=== PATIENT | male | born 1955 | race Caucasian/White ===

== ENCOUNTER 2016-07-01 21:19 | Inpatient (IN) | payer OTHER ==
--- NOTE | ~2016-07-01 | MR17 ---
[facility] A Service of [facility] & [facility] RADIOLOGY TEXT RESULTS PATIENT: JANET MORRISON LOCATION: [facility] 219-01 : [birth year] UNIT #: [id number] AGE: [address]: Tere Guadalupe MD SEX: M ORDER DR: [id number] [facility] [address] [place], [place] [address] [id number] I MR#: [id number] Acc #: [id number] NAME: JANET MORRISON : 1955 SEX: M STUDY DATE/TIME: 07/02/2016 17:12 UNIT: [facility] ROOM: [facility] STUDY DESCRIPTION: MR Brain WWo Contrast Attending Physician: Tere Guadalupe M.D. Referring Physician: Freddy Cuevas M.D. Ordering Physician: Scott Vitale M.D. Primary Care Physician: Freddy Cuevas M.D. MRI CENTER REPORT This report is preliminary unless electronic signature is present. EXAM MRI of the brain with and without contrast dated 07/02/2016 COMPARISON MRI of the brain with and without contrast dated 10/11/2013. HISTORY Pulled from car while having seizures today. FINDINGS Multisequence, multiplanar imaging of the brain was obtained with and without contrast. GFR measured greater than 60. 15 mL of MultiHance was administered intravenously. Previously noted oval 8 x 7.5 mm nonenhancing lesion abutting the left temporal horn and in the left hippocampal formation is again seen, stable. Nonspecific scattered hyperintense T2 signal lesions are noted in the subcortical and periventricular white matter. Stable to slightly worse when compared to the previous study. Thick slices through the sella with the pituitary gland, pineal region and upper cervical spine are unremarkable. S-shaped nasal septal deviation is seen. Mild paranasal sinus mucosal thickening is seen. Orbits with the ocular structures and mastoids do not demonstrate any significant abnormality. Subtle increased T2 FLAIR signal seen in bilateral hippocampal formations particularly in the left is again noted without any significant interval worsening in the last 3 years. Patient is known to have had prior viral encephalitis. It could be residual from the treated infection. IMPRESSION 1. Stable nonenhancing oval 9 mm left hippocampal cystic appearing lesion is again seen. 2. Nonspecific, nonenhancing, scattered, hyperintense T2 signal lesions are redemonstrated in the white matter, stable to slightly worse. [facility]. [facility] A Service of [facility] & [facility] RADIOLOGY TEXT RESULTS PATIENT: JANET MORRISON LOCATION: [facility] 219-01 : [birth year] UNIT #: [id number] AGE: [address]: Tere Guadalupe MD SEX: M ORDER DR: Differential consideration include chronic microvascular ischemic change, migraine and other white matter prior insults. 3. No interval significant new abnormality. 4. Subtle increased T2 FLAIR signal seen in bilateral hippocampal formations particularly in the left is again noted without any significant interval worsening in the last 3 years. Patient is known to have had prior viral encephalitis. It could be residual from the treated infection. Dictated by... Homero Simms M.D. THIS IS AN ELECTRONICALLY VERIFIED REPORT Homero Simms M.D. at 07/04/2016 1:08 PM CPR/delisa TD: 07/03/2016 08:06 JOB #: [id number] MRI CENTER REPORT COPY
--- NOTE | ~2016-07-01 | CO ---
Unit #: [id number] #: [id number] Patient: JANET MORRISON [id number] [address] [address] [id number] I MR#: [id number] NAME: JANET MORRISON [facility]OM: [facility] Age: 60 Sex: M Admission Date: 07/01/2016 : 1955 Attending Physician: Tere Guadalupe M.D. Primary Care Physician: Freddy Cuevas M.D. Requesting Physician: Freddy Cuevas M.D. Consultation Date: 07/01/2016 CONSULTATION REPORT REASON FOR CONSULT ICU management. HISTORY OF PRESENT ILLNESS This is a 58-year-old, male with past medical history significant for seizure, alcohol abuse, hypertension, and herpes encephalitis who presented to the emergency room after he was found in his car by a bystander seizing. Per family, patient was fine up to two hours ago when they talked to him last. He was visiting his fiancee who is sick here in the hospital. Per family, patient is compliant with his medicine and he was doing fine. Currently, patient is responsive only on the right side. His left pupil and left side are minimally reactive. REVIEW OF SYSTEMS Unable to obtain. PAST MEDICAL HISTORY 1. Seizure disorder. 2. Hypertension. 3. History of herpes encephalitis. 4. Chronic headache. 5. Depression. 6. History of alcohol abuse, but quit two years ago. PAST SURGICAL HISTORY None. HOME MEDICATIONS 1. Keppra. 2. Lisinopril. ALLERGIES Penicillin. SOCIAL HISTORY Patient has no history of tobacco abuse. He uses marijuana and he used to be a heavy drinker, but he quit two years ago. FAMILY HISTORY Unremarkable. PHYSICAL EXAMINATION Unit #: [id number] #: [id number] Patient: JANET MORRISON GENERAL: The patient is on the vent. HEENT: Head atraumatic and normocephalic. His left pupil is distorted and unreactive. NECK: Supple. No JVD. No lymphadenopathy. CHEST: Bilateral fine rhonchi. HEART: S1 and S2. No murmurs, gallops, or rubs. ABDOMEN: Soft and nontender. Bowel sounds are positive. No hepatosplenomegaly. EXTREMITIES: No edema or cyanosis. SKIN: No rashes. HABILITATION TRAINING SPECIALIST: Patient is withdrawing to pain stimuli on the right side. Left side still minimally responsive. He has gag and cough reflexes. DIAGNOSTIC STUDIES Labs and other tests are pending at this point. ASSESSMENT 1. Acute hypoxic respiratory failure. 2. Status post epilepticus. 3. History of hypertension. 4. History of alcohol abuse, but he quit two years ago. PLAN 1. Patient is critical. Will continue vent support pending further testing and imaging. 2. IV Keppra, IV Vimpat, and Ativan. 3. Will cover for aspiration pneumonia pending chest x-ray and other cultures. 4. Zosyn for aspiration pneumonia. 5. IV hydration. 6. DVT and GI prophylaxes. Please note that patient's labs are pending at the time of my dictation. This plan may need to be adjusted per his labs. Critical care time spent on this patient was 38 minutes. Dictated by... Mago Lr TD: 07/02/2016 06:43 JOB #: [id number] CONSULTATION REPORT X KENIA OGLESBY MD CONSULTATION REPORT
--- NOTE | ~2016-07-01 | CT71 ---
[facility] A Service of [facility] RADIOLOGY TEXT RESULTS PATIENT: JANET MORRISON LOCATION: [place] [address] : [birth year] UNIT #: [id number] AGE: [address]: Tere Guadalupe MD SEX: M ORDER DR: [id number] [facility] [address] [facility]. [place], [place] [address] [id number] I MR#: [id number] Acc #: [id number] NAME: JANET MORRISON : 1955 SEX: M STUDY DATE/TIME: 07/01/2016 23:04 UNIT: [facility] ROOM: [facility] STUDY DESCRIPTION: CT Head Wo Contrast Attending Physician: Tere Guadalupe M.D. Referring Physician: Freddy Cuevas M.D. Ordering Physician: Richard Atwood D.O. Primary Care Physician: Freddy Cuevas M.D. MEDICAL IMAGING REPORT This report is preliminary unless electronic signature is present EXAM Head CT, 07/01 at 23:04 hours INDICATION Seizure today. History of seizures. Patient also has a history of hypertension. COMPARISON 10/16/[address] exam was performed with one or more of the following radiation dose reduction techniques: automatic exposure control, adjustment of mA and/or kV according to patient size, and iterative reconstruction. FINDINGS Axial noncontrast images were obtained from the skull base to the vertex. Ventricular size and configuration are normal. There is no evidence of acute infarct or hemorrhage. There are no extra-axial fluid collections. No mass lesion or mass effect is seen. There are no skull fractures. IMPRESSION Normal noncontrast head CT. Dictated by... Buster Qureshi Jr., M.D. THIS IS AN ELECTRONICALLY VERIFIED REPORT Buster Qureshi Jr., M.D. at 07/02/2016 9:58 PM Ward TD: 07/02/2016 10:18 JOB #: [id number] [facility] A Service of [facility] RADIOLOGY TEXT RESULTS PATIENT: JANET MORRISON LOCATION: [address] : [birth year] UNIT #: [id number] AGE: [address]: Tere Guadalupe MD SEX: M ORDER DR: MEDICAL IMAGING REPORT COPY
--- NOTE | ~2016-07-01 | OR ---
Unit #: [id number] #: [id number] Patient: JANET MORRISON [id number] [address] [address] [id number] I MR#: [id number] NAME: JANET MORRISON ROOM: [facility] Date of Procedure: 07/01/2016 Admission Date: 07/01/2016 Surgeon: Kenia Chua M.D. : 1955 Attending Physician: Tere Guadalupe M.D. Primary Care Physician: Freddy Cuevas M.D. PROCEDURE OPERATIVE NOTE PROCEDURE Right intrajugular central line catheter placement with ultrasound guidance. INDICATION FOR PROCEDURE Status epilepticus. COMPLICATION None. PREMEDICATION None. DESCRIPTION OF PROCEDURE Informed consent was obtained from the patient. Dr. Beckford explaining the benefit and risk of this procedure. The patient was present, prepared with chlorhexidine and then a body drape was applied. Then with ultrasound guidance, a needle was inserted in the right IJ until blood flow was obtained and then a guidewire was inserted and the needle was removed. Then, a dilator was used to create a track for the catheter and then the catheter was inserted over the guidewire and guidewire was removed. The catheter was flushed appropriately and sutured in place. Biopatch and clean dressing were applied with no complication. Dictated by... Kenia Chua M.D. EA/yajaira TD: 07/02/2016 07:37 JOB #: [id number] PROCEDURE OPERATIVE NOTE X KENIA OGLESBY MD X PROCEDURE OPERATIVE NOTE
--- NOTE | ~2016-07-01 | CR72 ---
[facility] A Service of [facility] RADIOLOGY TEXT RESULTS PATIENT: JANET MORRISON LOCATION: [address] : [birth year] UNIT #: [id number] AGE: [address]: Tere Guadalupe MD SEX: M ORDER DR: [id number] [facility] [address] [facility] [place], [place] [address] [id number] I MR#: [id number] Acc #: [id number] NAME: JANET MORRISON : 1955 SEX: M STUDY DATE/TIME: 07/01/2016 22:05 UNIT: [facility] ROOM: [facility] STUDY DESCRIPTION: CR Chest Single View Portable Attending Physician: Tere Guadalupe M.D. Referring Physician: Freddy Cuevas M.D. Ordering Physician: Richard Atwood D.O. Primary Care Physician: Freddy Cuevas M.D. MEDICAL IMAGING REPORT This report is preliminary unless electronic signature is present EXAM AP portable chest 07/01/2016 at 22:05 HISTORY Seizure. Central line placement today. COMPARISON AP portable chest 10/17/2013. FINDINGS ET tube tip in satisfactory position in the mid to upper thoracic trachea, the tip located about 6.8 cm above the isreal. Right neck approach central line tip extends to the mid SVC level. No visible pneumothorax. Presumed skin fold artifact over the right upper lateral chest. No acute airspace disease. Heart size within normal limits. IMPRESSION 1. ET tube tip 6.8 cm above the isreal. 2. Right neck approach central line tip extends in the mid SVC. 3. No acute chest findings. Presumed skin fold artifact over the right upper lateral chest mimics the appearance of pneumothorax. No definite pneumothorax is seen. Dictated by... Dolores Alberto M.D. THIS IS AN ELECTRONICALLY VERIFIED REPORT Dolores Alberto M.D. at 07/02/2016 2:09 PM LORENZA/delisa TD: 07/02/2016 10:07 JOB #: [id number] [facility]. [facility] A Service of [facility] & [facility] RADIOLOGY TEXT RESULTS PATIENT: JANET MORRISON [address]ATION: [address] [id number] : [birth year] UNIT #: [id number] AGE: [address]: Tere Guadalupe MD SEX: M ORDER DR: MEDICAL IMAGING REPORT COPY
--- NOTE | ~2016-07-01 | CO ---
Unit #: [id number] #: [id number] Patient: JANET MORRISON [id number] [facility] [address] [facility]. [place], [place] [address] [id number] I MR#: [id number] NAME: JANET MORRISON ROOM: [facility] Age: 60 Sex: M Admission Date: 07/01/2016 : 1955 Attending Physician: Tere Guadalupe M.D. Primary Care Physician: Freddy Cuevas M.D. Consultation Date: 07/02/2016 CONSULTATION REPORT PRIMARY CARE PHYSICIAN Freddy Cuevas M.D. REASON FOR CONSULT Status epilepticus. PATIENT IDENTIFICATION This is a 60-year-old right-handed male, evaluated in ICU room 16 at [facility]. SOURCE OF INFORMATION Obtained from the patient's medical record. HISTORY OF PRESENT ILLNESS This is a 60-year-old right-handed male with past medical history of seizure disorder, herpes encephalitis, tobacco use, remote alcohol abuse, depression, chronic back pain, hypertension, also chronic headache, who presented to [facility] with recurrent seizures. He was admitted and treated for status epilepticus and was intubated and actually extubated this morning. He is confused, but following commands. He is agitated. He is restless. He is actually requiring four-point restraints to maintain his medical safety and is requiring a sitter. He is a poor historian and is altered. He had a head CT done in the ER without contrast on 07/01/2016 that was normal. He had a chest x-ray also on 07/02/2016 that is unremarkable. Chest x-ray from 07/01/2016 shows no acute chest findings. Presumed skin fold artifact over the right upper lateral chest mimics the appearance of pneumothorax. No definite pneumothorax is seen. PAST MEDICAL HISTORY 1. He was seen by Neurology in 09/2013 for syncope and was treated for seizure disorder. 2. Herpes encephalitis in the remote past. 3. Hypertension. 4. Chronic headaches. 5. Alcohol abuse. Apparently, quit drinking several years ago. 6. Marijuana use. 7. UTI. 8. Depression. ALLERGIES Penicillin. FAMILY HISTORY Unit #: [id number] #: [id number] Patient: JANET MORRISON Unobtainable from the patient at this time. According to records, family history is positive for hypertension and CAD. SOCIAL HISTORY The patient apparently lives with a girlfriend or an ex-. He has no current history of tobacco use. He does use marijuana. Apparently, he used to be heavy drinker, but it is reported that he quit in 2011. I am unable to verify this. The patient currently is a poor historian. These are obtained from the medical records. REVIEW OF SYSTEMS Difficult to obtain from the patient given his mental status. PHYSICAL EXAMINATION VITAL SIGNS: Temperature 97.8, he has been afebrile, pulse 85, respirations 23, blood pressure 141/67, blood pressure in the ER on arrival was 181/77, oxygen saturation 99%. Height 5 feet 10 inches, weight 134 pounds. BMI 19. NEUROLOGIC: The patient is resting in bed now. He has received medication. He is in four-point restraints. However upon arousal, the patient is agitated and restless. Attempts to sit up in bed. He does follow simple commands. He is a poor historian. He cannot tell me he is in the hospital. He tells me it is 04/2016. Cranial nerve exam, he responds to threats in the primary and peripheral visual burrell. Eyes are conjugate without ptosis or nystagmus. Extraocular movements are intact. Unable to fully assess sensation of face and scalp. Strength of muscles of facial expression appeared to be equal. Hearing is intact to voice. Tongue is midline. Unable to visualize uvula and palate. Head turning is unremarkable spontaneously. Unable to fully assess shoulder shrug. Neck is supple. No meningismus appreciated. Motor exam, his adult probation officer strength is equal. He moves all extremities equally in bed spontaneously. Sensory exam limited evaluation. He does respond with withdrawal to noxious stimuli. Gait deferred. Romberg deferred. Reflexes, 1/4. Toes are mute. Coordination, unable to fully assess at this time. No tremors or myoclonus seen. DIAGNOSTIC STUDIES IMAGING STUDIES: Please see above. LABORATORY RESULTS: White blood cell count 23.3, hemoglobin 13.4, hematocrit 40, platelet count 292. CPK 185. Lactic acid 1. Urine tox screen positive for marijuana. Initial white blood cell count 13.3. PT 11, INR 1.0, PTT 23.3. Acetaminophen level less than 10. Salicylate level less than 4. Alcohol level less than 5. CMP unremarkable. Procalcitonin less than 0.05. IMPRESSION 1. Status epilepticus, resolved, stable. 2. Encephalopathy questionable toxic and metabolic versus primary neurologic etiology. No meningismus seen. 3. Leukocytosis, questionable reactive. 4. Seizure disorder. 5. Hypertension. 6. History of herpes encephalitis. PLAN The patient is stable, not currently seizing, and we will follow along closely. May consider LP. Given his altered mental status and seizures Unit #: [id number] #: [id number] Patient: JANET MORRISON though he has no meningismus or fever, but given his history and presentation, we have status epilepticus that is now stable, but we do not have an established cause for breakthrough. Family reports he is very compliant. We cannot do an LP today as he is having some urinary bleeding and is on Effient, Pletal, and has also received Lovenox. He has received broad-spectrum antibiotics x3 doses. We will request MRI of the brain in attempt to get that with some mild sedation as the patient is not fully cooperative. He is currently on 2 seizure medications. He was on Keppra at home and it has been increased and we have added Vimpat. Please call for any questions or issues. We thank you very much for allowing us to assist in the care of this patient. Dictated by... Araceli Duckworth A.P.R.N. for Mago White/cesar TD: 07/03/2016 05:25 JOB #: [id number] CONSULTATION REPORT X Araceli Duckworth APRN X CONSULTATION REPORT
--- NOTE | ~2016-07-01 | DS ---
Unit #: [id number] #: [id number] Patient: KADEN MORRISON [id number] [address] [address] [id number] I MR#: [id number] NAME: KADEN MORRISON ROOM: 219 Age: 60 Sex: M Admission Date: 07/01/2016 : 1955 Discharge Date: 07/04/2016 Attending Physician: Tere Guadalupe M.D. Referring Physician: Freddy Cuevas M.D. Primary Care Physician: Freddy Cuevas M.D. DISCHARGE SUMMARY FINAL DIAGNOSES 1. Breakthrough seizure with status epilepticus, which has resolved. 2. Acute hypoxic respiratory failure; was intubated in the hospital. Resolved. 3. Leukocytosis, which was reactive and is improved. 4. Chronic anemia. 5. Hypertension. 6. History of herpetic encephalitis. 7. Coronary artery disease status post coronary artery bypass graft. 8. Tobacco abuse. 9. Chronic pain. DISCHARGE MEDICATIONS 1. Keppra 750 mg b.i.d. 2. Atorvastatin 40 mg daily. 3. Pletal 100 mg daily. 4. Coreg 3.125 mg b.i.d. 5. Aricept 10 mg daily. 6. Zestril 5 mg daily. 7. Aspirin 81 mg daily. 8. Effient 10 mg daily. 9. Nitrostat p.r.n. 10. Aptiom 800 mg daily. CONSULTATIONS DONE DURING HOSPITALIZATION 1. Dr. Vitale from neurology service. 2. Dr. Chua and Dr. Blackmon from pulmonary service. DIAGNOSTIC STUDIES LAB WORKUP ON DISCHARGE: Sodium 141, potassium 3.8, chloride 108, BUN 12, creatinine 0.6. WBC 10.3, hemoglobin 9.8, hematocrit 28.4, platelet count 204. IMAGING: MRI of the brain states stable nonenhancing oval 9-mm left hippocampal cystic-appearing lesion. Nonspecific, nonenhancing, scattered, hyperintense T2 signal lesions are redemonstrated in the white matter. HOSPITAL COURSE Mr. Kaden Morrison is a 60-year-old male who was admitted to the hospital after he was found to have status epilepticus in his car. The patient was brought to the ER, given IV Keppra, IV Vimpat and IV Ativan. The patient was intubated and was admitted to ICU. He was extubated in 8-10 hours or so, and Dr. Vitale was consulted. The patient had MRI done. The patient has history of herpetic encephalitis. Per Dr. Vitale, he needs to repeat Unit #: [id number] #: [id number] Patient: KADEN MORRISON his MRI maybe in 6-9 months or so and follow up with his neurologist as an outpatient. The patient had not taken his medication for 1 day or so. The patient has been advised to be compliant with the medications. The patient's Keppra is being increased to 750 mg b.i.d. The patient is stable, would like to be discharged home and is being discharged home. EXAMINATION ON DISCHARGE VITAL SIGNS: Blood pressure is 121/70, respiratory rate 18, pulse 56, temperature 98. RESPIRATORY: Chest has fair air entry. No adventitious sounds. CVS: Regular rhythm. ABDOMEN: Soft. EXTREMITIES: Negative edema. DISCHARGE INSTRUCTIONS 1. Follow up with primary care provider in 1 week. 2. Prescription for Keppra has been written. 3. Medication as per med/rec. 4. Be compliant with medications. Dictated by... Mago Tabor TD: 07/05/2016 11:13 JOB #: [id number] DISCHARGE SUMMARY X Tere Guadalupe MD X DISCHARGE SUMMARY
--- NOTE | ~2016-07-01 | EKG ---
PATIENT: JANET MORRISON UNIT #: [id number] Ventricular Rate: 102 BPM Atrial Rate: 102 BPM P-R Interval: 148 ms QRS Duration: 88 ms Q-T Interval: 340 ms QTC Calculation(Bezet): 443 ms P Sparta: 78 degrees Calculated R Sparta: -49 degrees Calculated T Sparta: 3 degrees Diagnosis Line: Sinus tachycardia Diagnosis Line: Biatrial enlargement Diagnosis Line: Left axis deviation Diagnosis Line: Abnormal ECG Diagnosis Line: When compared with ECG of 17-OCT-2013 20:43, Diagnosis Line: Vent. rate has increased BY 40 BPM Diagnosis Line: QRS axis Shifted left Diagnosis Line: T wave inversion now evident in Inferior leads Diagnosis Line: T wave amplitude has decreased in Lateral leads Diagnosis Line: Confirmed by DYLAN GIRALOD MD ([id number]) on Diagnosis Line: 07/02/2016 4:14:24 PM INTERPRETING MD: KRISTAL COTE
--- NOTE | ~2016-07-01 | CR72 ---
[facility] A Service of [facility] & [facility] RADIOLOGY TEXT RESULTS PATIENT: JANET MORRISON LOCATION: [address] : [birth year] UNIT #: [id number] AGE: [address]: Tere Guadalupe MD SEX: M ORDER DR: [id number] [place] [address] [facility]. [place], [place] [address] [id number] I MR#: [id number] Acc #: [id number] NAME: JANET MORRISON : 1955 SEX: M STUDY DATE/TIME: 07/02/2016 6:15 UNIT: [facility] ROOM: [facility] STUDY DESCRIPTION: CR Chest Single View Portable Attending Physician: Tere Guadalupe M.D. Referring Physician: Freddy Cuevas M.D. Ordering Physician: Elba Chua M.D. Primary Care Physician: Freddy Cuevas M.D. MEDICAL IMAGING REPORT This report is preliminary unless electronic signature is present EXAM Frontal chest 07/02/2016 INDICATION Respiratory failure in a 60-year-old male, seizures. Ventilator patient. Symptoms since 07/01/2016. Hypertension. Tobacco abuse. TECHNIQUE Frontal chest compared with 07/01/2016. FINDINGS ET tube tip in good position above the isreal. Right-sided central line unchanged for technical factors. Cardiac silhouette unremarkable. Vascularity normal. The lungs are clear. No pneumothorax or effusion. The left CP angle is excluded from view. There is a curvilinear edge shadow artifact overlying the upper lung zone on the right likely representing a skin fold. IMPRESSION Tubes and lines in satisfactory position. No pneumothorax. No significant change from 07/01/2016. Dictated by... Jesse Roberto M.D. THIS IS AN ELECTRONICALLY VERIFIED REPORT Jesse Roberto M.D. at 07/02/2016 4:38 PM Catarina TD: 07/02/2016 11:20 JOB #: [id number] [facility] A Service of [facility] & [facility] RADIOLOGY TEXT RESULTS PATIENT: JANET MORRISON LOCATION: [address] [id number] [birth year] UNIT #: [id number] AGE: [address]: Tere Guadalupe MD SEX: M ORDER DR: MEDICAL IMAGING REPORT COPY
--- NOTE | ~2016-07-01 | HP ---
Unit #: [id number] #: [id number] Patient: JANET MORRISON [id number] [address] [place], [place] [address] [id number] MR#: [id number] NAME: JANET MORRISON ROOM: [facility] Age: 60 Sex: M Admission Date: 07/01/2016 : 1955 Attending Physician: Tere Guadalupe M.D. Referring Physician: Freddy Cuevas M.D. Primary Care Physician: Freddy Cuevas M.D. HISTORY AND PHYSICAL CHIEF COMPLAINT Seizure. HISTORY OF PRESENT ILLNESS The patient is a 60-year-old male who has a past medical history of seizure disorder hypertension, history of herpes encephalitis, alcohol abuse, tobacco abuse, was visiting his girlfriend in the hospital, went to the car and then he was noticed to have seizures. The patient was taken to ER and he had status epilepticus, which is resolved at this time. The patient received Keppra 1 g IV in ER, Ativan 2 g and Versed 2 mg, and also Vimpat 100 mg IV. The patient does not have any seizure at this time. What I understand, he was having seizures in the car and he was pulled from the car. PAST MEDICAL HISTORY 1. Hypertension. 2. Seizure disorder. 3. Herpes encephalitis. 4. Alcohol abuse, which I understand he quit a few years ago. 5. Tobacco abuse. HOME MEDICATIONS The list I have I am not really sure of says Keppra 500 mg daily; Coreg 3.125 mg twice daily; Aricept 10 mg daily; lisinopril 5 mg daily; Effient 10 mg daily; atorvastatin 40 mg daily; Pletal 100 mg daily; low dose aspirin daily; Nitrostat 0.4 mg sublingual p.r.n.; Aptiom 800 mg daily. SOCIAL HISTORY Again the patient has a history of marijuana use. No history of smoking. He does have a history of drinking but quit sometime ago. PAST SURGICAL HISTORY None. FAMILY HISTORY Unremarkable. REVIEW OF SYSTEMS As per history of presenting illness. I do not have anything else at this time. No family is available at this time. PHYSICAL EXAMINATION GENERAL: The patient is examined in ICU room 16, blood pressure 141/67. VITAL SIGNS: On admission patient's blood pressure was 167/110, Unit #: [id number] #: [id number] Patient: JANET MORRISON respiratory rate 23, pulse 85, temperature 97.8. HEENT: Head is normocephalic. Patient is following some commands and answers some appropriately but not all the way. He does seem to be still confused and agitated. CHEST: Fair air entry, no additional sounds. CVS: S1 and S2 positive. Regular rhythm. ABDOMEN: Soft. EXTREMITIES: Negative edema. CASTING CLEANER: Again patient is awake, alert and oriented x2. Patient was intubated in ER but now has been extubated. He is very, very restless. DIAGNOSTIC STUDIES LABORATORY STUDIES: Lab workup, which were done in ER - ABG showed pH 7.14, pCO2 47, bicarb 16, and oxygen saturation 86.9. Urine drug screen was positive for marijuana. CBC shows WBC 13.3, hemoglobin 14.1, hematocrit 41.8, and platelet count of 294, WBC has increased to 23 at this time. PT and INR is 11.0 and 1.1. Acetaminophen level is less than 10. Salicylates less than 4. Alcohol less than 5. Sodium 140, potassium 3.9, chloride 108, BUN 9, creatinine 0.8, liver enzymes seems to be stable. Procalcitonin level less than 0.05. Troponin is less than 0.05. Repeat ABG has improved with pH 7.44, pCO2 36, and oxygen saturation is 97%. Lactic acid 1.0. CPK 185. IMAGING STUDIES: CT scan of the head was done in ER, which showed normal noncontrast head CT. Chest x-ray shows no infiltrate. ASSESSMENT The patient is being admitted to ICU: 1. Status epilepticus, which is now resolved. 2. Leukocytosis, possible reactive, but unlikely to be infectious etiology, may need to rule it out. 3. Acute hypoxic respiratory failure, which is resolved. Patient was extubated in the morning. He is on 2 L per nasal cannula. 4. Hypertension, which is much improved at this time. 5. History of alcohol abuse, which I understand he has quit some time ago. 6. Patient is very agitated. PLAN Admit to ICU. Dr. Chua has been consulted. IV fluids are being started. Antiseizure medications are being continued. Home medications will be reviewed. I will discuss with patient's family about the medications, which I am not sure whether he is on all these medications. Dr. Vitale has been consulted. Patient is on Keppra 1 g q.12 and Vimpat 100 mg q.12. He is on Lovenox 40 mg subcu daily. Dictated by Mago Tabor TD: 07/02/2016 13:18 JOB #: [id number] Unit #: [id number] #: [id number] Patient: JANET MORRISON HISTORY AND PHYSICAL X Tere Guadalupe MD HISTORY AND PHYSICAL
[2016-07-01 21:19] LABS: ARTERIAL BLD GAS O2 SATURATION 86.9 % (90.0-100.0); ARTERIAL BLOOD GAS CARBOXY HB 4.9 %sat (0.0-9.0); ARTERIAL BLOOD GAS HCO3 16.2 mmol/L; ARTERIAL BLOOD GAS MET HB 0.7 %sat (0.0-2.0); ARTERIAL BLOOD GAS PCO2 47.4 mmHg (35.0-45.0)
[~2016-07-01 21:19] MED LIST: ACETAMINOPHEN650 M3 PO; CLONIDINE HCL0.1 MG PO; KEPPRA500 MG PO; LEVETIRACETAM750 MG PO; LISINOPRIL20 MG PO; ZESTRIL40 MG PO
[2016-07-01 21:20] LABS: ARTERIAL BLOOD GAS ALLEN TEST NORMAL; ARTERIAL BLOOD GAS ART SITE LEFT RADIAL; ARTERIAL BLOOD GAS DELIVERY VENT; ARTERIAL BLOOD GAS VENT MODE AC; ARTERIAL BLOOD GAS pH 7.141 (7.350-7.450); ARTERIAL DRAW? YES
[2016-07-01 22:21] LABS: BASOPHIL% 0.3 % (0-2.5); EOSINOPHIL# 0.1 X10e3 (0-0.7); EOSINOPHIL% 0.7 % (0.0-7.0); HEMATOCRIT 41.8 % (38.0-50.0); HEMOGLOBIN 14.1 gm/dL (13.0-16.0); LYMPHOCYTE# 1.1 X10e3 (1.0-3.5); LYMPHOCYTE% 8.2 % (17.0-45.0); MEAN CELL VOLUME 92.5 FL (83-96); MEAN CORPUSCULAR HEMOGLOBIN 31.1 PG (28-34); MEAN CORPUSCULAR HGB CONC 33.6 g/dL (30-36); MEAN PLATELET VOLUME 7.1 FL (6.5-11.5); MONOCYTE# 0.6 X10e3 (0-1.0); MONOCYTE% 4.4 % (3.0-12.0); NEUTROPHIL# 11.5 X10e3 (1.5-7.1); NEUTROPHIL% 86.4 % (40-75); PLATELET COUNT 294 X10e3 (140-420); RED BLOOD COUNT 4.52 X10e (3.90-5.60); RED CELL DISTRIBUTION WIDTH 13.1 % (11.0-15.5); WHITE BLOOD COUNT 13.3 X10e3 (4.0-10.5)
[2016-07-01 22:22] LABS: AMPHETAMINE NEG (NEG); BARBITURATES NEG (NEG); BENZODIAZEPINES NEG (NEG); COCAINE NEG (NEG); MARIJUANA POS (NEG); OPIATES NEG (NEG); TRICYCLIC ANTIDEPRESSANTS NEG (NEG); U METHADONE NEG (NEG)
[2016-07-01 22:31] LABS: DIFF IND NO
[2016-07-01 22:37] LABS: PARTIAL THROMBOPLASTIN TIME 23.3 SECONDS (23.5-31.3)
[2016-07-01 22:54] LABS: SALICYLATE <4.0 mg/dL
[2016-07-01 22:55] LABS: ACETAMINOPHEN <10 ug/mL; ALCOHOL BLOOD <5 mg/dL ([0,])
[2016-07-01 23:24] LABS: ALBUMIN SERUM 4.2 g/dL (3.5-5.0); ALKALINE PHOSPHATASE 60 U/L (32-92); ALT (SGPT) 40 U/L (10-40); AST (SGOT) 38 U/L (10-42); BILIRUBIN,TOTAL 0.5 mg/dL (0.2-2.0); BLOOD UREA NITROGEN 9 mg/dL (9-23); BUN/CREATININE RATIO 11.25; CALCIUM SERUM 8.7 mg/dL (8.4-10.2); CARBON DIOXIDE 26 mmol/L (22-31); CHLORIDE 108 mmol/L (100-111); CREATININE SERUM 0.8 mg/dL (0.6-1.4); GLOM FILT RATE Estimated ABOVE60 mL/min (>60); GLUCOSE FASTING 86 mg/dL (70-110); POTASSIUM 3.9 mmol/L (3.5-5.1); PROTEIN TOTAL SERUM 6.7 g/dL (6.0-8.3); SODIUM 140 mmol/L (135-145)
[2016-07-02 01:00] LABS: POC - CKMB 2.7 ng/mL (0.0-7.9); POC - TROPONIN <0.05 ng/mL (<=0.05)
[2016-07-02 01:53] LABS: POC - CKMB 3.9 ng/mL (0.0-7.9); POC - TROPONIN <0.05 ng/mL (<=0.05)
[2016-07-02] MEDS ORDERED: LEVETIRACETAM500 MG PO (03:35)
[2016-07-02] MEDS ORDERED: CARVEDILOL3.125 MG PO (03:35)
[2016-07-02] MEDS ORDERED: DONEPEZIL HCL10 MG PO (03:36)
[2016-07-02] MEDS ORDERED: LISINOPRIL5 MG PO (03:36)
[2016-07-02] MEDS ORDERED: EFFIENT10 MG PO (03:37)
[2016-07-02] MEDS ORDERED: APTIOM800 MG PO (03:37)
[2016-07-02] MEDS ORDERED: PLETAL100 M1 PO (03:38)
[2016-07-02] MEDS ORDERED: ATORVASTATIN CA40 MG PO (03:38)
[2016-07-02] MEDS ORDERED: NITROSTAT0.4 MG SL (03:39)
[2016-07-02] MEDS ORDERED: LOW DOSE ASPIRI81 M1 PO (03:39)
[2016-07-02 04:20] LABS: ARTERIAL BLD GAS O2 SATURATION 97.9 % (90.0-100.0); ARTERIAL BLOOD GAS CARBOXY HB 0.6 %sat (0.0-9.0); ARTERIAL BLOOD GAS HCO3 25.2 mmol/L; ARTERIAL BLOOD GAS MET HB 0.9 %sat (0.0-2.0); ARTERIAL BLOOD GAS PCO2 36.5 mmHg (35.0-45.0); ARTERIAL BLOOD GAS pH 7.447 (7.350-7.450)
[2016-07-02 04:30] LABS: ARTERIAL BLOOD GAS ART SITE RIGHT FEMORAL; ARTERIAL BLOOD GAS DELIVERY VENT; ARTERIAL BLOOD GAS VENT MODE AC; ARTERIAL DRAW? YES
[2016-07-02 07:49] LABS: BASOPHIL% 0.2 % (0-2.5); EOSINOPHIL% 0.2 % (0.0-7.0); HEMOGLOBIN 13.4 gm/dL (13.0-16.0); LYMPHOCYTE% 8.7 % (17.0-45.0); MEAN CELL VOLUME 92.1 FL (83-96); MEAN CORPUSCULAR HEMOGLOBIN 30.7 PG (28-34); MEAN CORPUSCULAR HGB CONC 33.4 g/dL (30-36); MEAN PLATELET VOLUME 7.7 FL (6.5-11.5); MONOCYTE# 1.6 X10e3 (0-1.0); MONOCYTE% 6.9 % (3.0-12.0); NEUTROPHIL# 19.6 X10e3 (1.5-7.1); PLATELET COUNT 292 X10e3 (140-420); RED BLOOD COUNT 4.35 X10e (3.90-5.60)
[2016-07-02 07:51] LABS: DIFF IND YES; WHITE BLOOD COUNT 23.3 X10e3 (4.0-10.5)
[2016-07-02 08:24] LABS: PLATELET ESTIMATE NORMAL (NORMAL)
[2016-07-02 08:25] LABS: ANISOCYTOSIS SL
[2016-07-02 15:34] LABS: BASOPHIL% 0.1 % (0-2.5); EOSINOPHIL% 0.1 % (0.0-7.0); HEMATOCRIT 35.4 % (38.0-50.0); HEMOGLOBIN 12.1 gm/dL (13.0-16.0); LYMPHOCYTE# 1.6 X10e3 (1.0-3.5); MEAN CELL VOLUME 92.7 FL (83-96); MEAN CORPUSCULAR HEMOGLOBIN 31.7 PG (28-34); MEAN CORPUSCULAR HGB CONC 34.2 g/dL (30-36); MEAN PLATELET VOLUME 7.6 FL (6.5-11.5); MONOCYTE# 2.3 X10e3 (0-1.0); MONOCYTE% 8.7 % (3.0-12.0); NEUTROPHIL# 22.8 X10e3 (1.5-7.1); NEUTROPHIL% 85.1 % (40-75); PLATELET COUNT 263 X10e3 (140-420); RED BLOOD COUNT 3.82 X10e (3.90-5.60); WHITE BLOOD COUNT 26.8 X10e3 (4.0-10.5)
[2016-07-02 15:36] LABS: DIFF IND NO
[2016-07-03 05:48] LABS: BASOPHIL# 0.1 X10e3 (0-0.3); BASOPHIL% 0.8 % (0-2.5); EOSINOPHIL# 0.3 X10e3 (0-0.7); EOSINOPHIL% 1.9 % (0.0-7.0); HEMATOCRIT 30.5 % (38.0-50.0); HEMOGLOBIN 10.3 gm/dL (13.0-16.0); LYMPHOCYTE# 2.5 X10e3 (1.0-3.5); LYMPHOCYTE% 19.3 % (17.0-45.0); MEAN CELL VOLUME 93.1 FL (83-96); MEAN CORPUSCULAR HEMOGLOBIN 31.5 PG (28-34); MEAN CORPUSCULAR HGB CONC 33.8 g/dL (30-36); MEAN PLATELET VOLUME 7.4 FL (6.5-11.5); MONOCYTE# 1.2 X10e3 (0-1.0); MONOCYTE% 9.2 % (3.0-12.0); NEUTROPHIL% 68.8 % (40-75); PLATELET COUNT 216 X10e3 (140-420); RED BLOOD COUNT 3.28 X10e (3.90-5.60); RED CELL DISTRIBUTION WIDTH 12.9 % (11.0-15.5)
[2016-07-03 05:56] LABS: DIFF IND NO; WHITE BLOOD COUNT 13.1 X10e3 (4.0-10.5)
[2016-07-03 07:04] LABS: BLOOD UREA NITROGEN 11 mg/dL (9-23); CALCIUM SERUM 8.4 mg/dL (8.4-10.2); CARBON DIOXIDE 25 mmol/L (22-31); CHLORIDE 110 mmol/L (100-111); CREATININE SERUM 0.5 mg/dL (0.6-1.4); GLOM FILT RATE Estimated ABOVE60 mL/min (>60); GLUCOSE FASTING 81 mg/dL (70-110); PHOSPHOROUS 2.7 mg/dL (2.5-4.6); POTASSIUM 3.7 mmol/L (3.5-5.1); SODIUM 144 mmol/L (135-145)
[2016-07-04 06:29] LABS: BASOPHIL# 0.1 X10e3 (0-0.3); BASOPHIL% 0.7 % (0-2.5); EOSINOPHIL# 0.4 X10e3 (0-0.7); HEMATOCRIT 28.4 % (38.0-50.0); HEMOGLOBIN 9.8 gm/dL (13.0-16.0); LYMPHOCYTE# 3.3 X10e3 (1.0-3.5); LYMPHOCYTE% 31.7 % (17.0-45.0); MEAN CELL VOLUME 92.7 FL (83-96); MEAN CORPUSCULAR HEMOGLOBIN 32.1 PG (28-34); MEAN CORPUSCULAR HGB CONC 34.6 g/dL (30-36); MEAN PLATELET VOLUME 7.9 FL (6.5-11.5); MONOCYTE# 0.9 X10e3 (0-1.0); NEUTROPHIL# 5.6 X10e3 (1.5-7.1); NEUTROPHIL% 54.6 % (40-75); PLATELET COUNT 204 X10e3 (140-420); RED BLOOD COUNT 3.07 X10e (3.90-5.60); WHITE BLOOD COUNT 10.3 X10e3 (4.0-10.5)
[2016-07-04 06:47] LABS: DIFF IND NO
[2016-07-04 06:59] LABS: BLOOD UREA NITROGEN 12 mg/dL (9-23); CALCIUM SERUM 8.5 mg/dL (8.4-10.2); CARBON DIOXIDE 27 mmol/L (22-31); CHLORIDE 108 mmol/L (100-111); CREATININE SERUM 0.6 mg/dL (0.6-1.4); GLOM FILT RATE Estimated ABOVE60 mL/min (>60); GLUCOSE FASTING 91 mg/dL (70-110); POTASSIUM 3.8 mmol/L (3.5-5.1); SODIUM 141 mmol/L (135-145)
== END 2016-07-04 14:23 | disposition home or self-care (01) | DRG 100 ==
LOC: CED 21:19 → CEDOF 23:36 → CICCU3 07-02 03:17 → C2A 07-03 20:52
PROVIDERS: Emergency Medicine; Internal Medicine; Internal Medicine Pulmonary Disease; Physician Assistant Medical; Psychiatry & Neurology Neurology
PROC: 0BH17EZ Insertion of Endotracheal Airway into Trachea, Via Natural or Artificial Opening (ICD-10-PCS; principal; 2016-07-01)
PROC: 5A1935Z Respiratory Ventilation, Less than 24 Consecutive Hours (ICD-10-PCS; 2016-07-01)
PROC: 05HM33Z Insertion of Infusion Device into Right Internal Jugular Vein, Percutaneous Approach (ICD-10-PCS; 2016-07-01)
PROC: B543ZZA Ultrasonography of Right Jugular Veins, Guidance (ICD-10-PCS; 2016-07-01)
DX: G40.901 Epilepsy, unspecified, not intractable, with status epilepticus (principal); J96.01 Acute respiratory failure with hypoxia; G92 Toxic encephalopathy; F17.210 Nicotine dependence, cigarettes, uncomplicated; D72.829 Elevated white blood cell count, unspecified; D53.9 Nutritional anemia, unspecified; I25.10 Atherosclerotic heart disease of native coronary artery without angina pectoris; I10 Essential (primary) hypertension; Z95.1 Presence of aortocoronary bypass graft; G89.29 Other chronic pain; Z88.0 Allergy status to penicillin; F12.90 Cannabis use, unspecified, uncomplicated
CPT/HCPCS: 31500; 36415; 36556; 36600; 70450; 70553; 71010; 80048; 80053; 80307; 82308; 82550; 82553; 82803; 83605; 83735; 84100; 84484; 85025; 85610; 85730; 93005; 94002; 94003; 94760; 94761; 96361; 96374; 96375; 97161; 97165; 99291; A9577; C9254; G0480; J1650; J1953; J2060; J2250; J2310; J3486

== ENCOUNTER 2016-07-07 18:29 | Inpatient (IN) | payer OTHER ==
--- NOTE | ~2016-07-07 | HP ---
Unit #: [id number] #: [id number] Patient: KADEN MORRISON [id number] [address] [place], [place] [address] [id number] I MR#: [id number] NAME: KADEN MORRISON ROOM: 227 Age: 60 Sex: M Admission Date: 07/07/2016 : 1955 Attending Physician: Tere Guadalupe M.D. Primary Care Physician: Freddy Cuevas M.D. HISTORY AND PHYSICAL CHIEF COMPLAINT Hematuria. HISTORY OF PRESENTING ILLNESS Mr. Kaden Morrison is a 60-year-old male, who was recently discharged from [facility], was admitted from July 14 for breakthrough seizure with status epilepticus. The patient was treated with Keppra and Vimpat. Keppra dose was increased to 750 mg b.i.d. and the patient was advised to be compliant. According to patient, he has been coming to hospital to see his girlfriend who is admitted in the hospital. He started having this blood through the urine two days ago but he did not tell anybody until today when he thought that his girlfriend was feeling better. The patient went to ER and was admitted to evaluate massive hematuria. The patient does not complain of dysuria. He does not complain of any nausea and vomiting. He does complain of back pain, although he does have a history of chronic back pain. No complaint of dizziness or syncopal episode. PAST MEDICAL HISTORY 1. Seizure disorder. 2. Hypertension. 3. Coronary artery disease status post CABG. 4. Herpetic encephalitis. 5. Tobacco abuse. 6. History of alcohol abuse which he has quit. PAST SURGICAL HISTORY None. FAMILY HISTORY Unremarkable. HOME MEDICATIONS 1. Keppra 750 mg p.o. twice a day. 2. Coreg 3.125 mg twice a day. 3. Aricept 10 mg daily. 4. Lisinopril 5 mg daily. 5. Effient 10 mg daily. 6. Atorvastatin 40 mg daily. 7. Pletal 100 mg daily. 8. Aspirin 81 mg daily. 9. Nitrostat on a p.r.n. basis. SOCIAL HISTORY Unit #: [id number] #: [id number] Patient: KADEN MORRISON No history of smoking but he has a history of marijuana use. No history of alcohol abuse at this time. He used to drink which he quit. REVIEW OF SYSTEMS No history of nausea and vomiting. He has been doing well since discharge from hospital. He has had not had any seizures. He does not complain of any abdominal pain, nausea, vomiting. He does not complain of back pain but he is pointing towards low back near the lumbar area. No complaint of dysuria. No complaint of constipation or diarrhea. No complaint of dizziness or syncopal episode. No complaint of any skin issues. PHYSICAL EXAMINATION GENERAL APPEARANCE: The patient is lying in bed, does not seem to be in any respiratory distress. The patient is being examined in room 227 on 2A at [facility]. VITAL SIGNS: Blood pressure 134/70. Respiratory rate 18. Pulse 86. Temperature 98.2. BMI is 22. HEENT: Head is normocephalic, nontraumatic. Pupils are equal and reacting to light. Eye movements are normal. NECK: Supple. No thyromegaly. Trachea is in midline. No carotid bruits. CHEST: Fair air entry. No additional sounds. CARDIOVASCULAR: S1, S2 positive. Regular rhythm. ABDOMEN: Soft, nontender. No organomegaly. Bowel sounds are positive in all quadrants. No CVA tenderness. LUMBAR SPINE: Very mild paraspinal tenderness is present. EXTREMITIES: Negative edema. Pulses are palpable. DIAGNOSTIC STUDIES LABORATORY: WBC 11.6, hemoglobin 10.8, hematocrit 31.1, platelet count 345. Urinalysis is 2+ leukocyte esterase, a lot of RBCs. Sodium 141, potassium 4.2, chloride 102, BUN 9, creatinine 0.6. Liver enzymes are normal. ASSESSMENT The patient is being admitted to med/surg unit with: 1. Hematuria. 2. Possible UTI. 3. Anemia. 4. Seizure disorder. 5. Hypertension. 6. Coronary artery disease. PLAN Admit to med/surg. [facility] is being consulted. IV Rocephin one gram q.24 hours is being started. Home medications have been reviewed and adjusted. We are going to hold aspirin, Effient and Pletal at this time. Plan of care has been discussed with patient. IV fluids are being started, normal saline at 75 an hour. Please refer to progress note for further orders. Dictated by Mago Tabor TD: 07/08/2016 12:18 Unit #: [id number] #: [id number] Patient: KADEN MORRISON JOB #: [id number] HISTORY AND PHYSICAL X Tere Guadalupe MD X HISTORY AND PHYSICAL
--- NOTE | ~2016-07-07 | CO ---
Unit #: [id number] #: [id number] Patient: JANET MORRISON [id number] [address] [place], [place] [address] [id number] I MR#: [id number] NAME: JANET MORRISON. ROOM: 227 Age: 60 Sex: M Admission Date: 07/07/2016 : 1955 Attending Physician: Tere Guadalupe M.D. Primary Care Physician: Freddy Cuevas M.D. Consultation Date: 07/10/2016 CONSULTATION REPORT REASON FOR CONSULTATION Gross hematuria. HISTORY OF PRESENT ILLNESS This 60-year-old man, presented to the hospital with asymptomatic gross hematuria. He takes Eliquis chronically. He had no recent or prior voiding difficulty. There is a written order for Urology consultation from 07/07/2016, but this did not reach the [facility] list over the weekend. We were reconsulted yesterday and the covering physician was not able to return to complete the consultation. I was contacted last evening. He has a history well documented of recent admission while visiting his girlfriend who is still in the hospital here. He was found unconscious from seizure in the parking lot and admitted to the intensive care unit, where involuntarily he removed 2 Muro catheters himself with the balloon up, but eventually was stable and discharged. He had been off his seizure medication. On this admission, a 16-Kazakh Muro catheter was placed and there was still bleeding when I was contacted last evening, so I requested a 22-Kazakh 3-way be placed, but according to the wound nurse who was helping his distal urethra, it was too small to accommodate this and a fresh 16 catheter was replaced. It has, however, been draining only partially bloody urine, intermittently yellow, and no clots. The patient has a normal creatinine. His urine was unfortunately not sampled on his previous admission, but on admission here as anticipated showed positive leukocyte esterase and positive blood both 2+, and positive nitrites, innumerable rbc's and 10 to 25 wbc's, no bacteria and urine culture has no growth at 48 hours. He has been on Rocephin. He reports no prior voiding difficulties, no history of stone disease, urinary tract infection or gross hematuria. He does have a significant smoking history averaging one pack per day since his teen years and twice that when he was drinking. PAST MEDICAL HISTORY Includes seizure disorder, hypertension, coronary artery disease status post CABG, herpetic encephalitis, tobacco use, history of alcohol abuse. PAST SURGICAL HISTORY None. CURRENT MEDICATIONS Unit #: [id number] #: [id number] Patient: JANET MORRISON Keppra, Coreg, Aricept, lisinopril, Effient, atorvastatin, Pletal, low-dose aspirin, and Nitrostat. ALLERGIES Penicillins, but tolerating Rocephin. FAMILY HISTORY Negative for prostate cancer. SOCIAL HISTORY Tobacco as noted, also prior ethanol. REVIEW OF SYSTEMS Negative as above. PHYSICAL EXAMINATION GENERAL: The patient is alert, comfortable, somewhat disheveled, poor dentition. ABDOMEN: Soft, nontender. : Genitalia within normal limits. Muro catheter in place, draining light urine as noted. DIAGNOSTIC STUDIES LABORATORY RESULTS: Include urine culture no growth. Creatinine 0.6. Normal coagulation parameters. Hemoglobin 9.8, WBC 11.4. IMPRESSION The patient does have a pertinent tobacco history and has gross hematuria. His hematuria should be evaluated if it persists on prolonged followup, but it is almost certainly due to his repeated catheter trauma. I recommend continuous catheter drainage of the bladder for one week, then the patient agrees, and would like to be discharged this morning. PLAN We will have him instructed in leg and night bag use. We will cover with Keflex and see him back in the office in 1 week for a voiding trial. Thank you, Tere, for the consultation. Dictated by... Buster Gilman M.D. UZAIR/cesar TD: 07/11/2016 04:16 JOB #: [id number] CC: Gavino Parker M.D. Unit #: [id number] #: [id number] Patient: JANET MORRISON Vi CONSULTATION REPORT X Buster Gilman MD X CONSULTATION REPORT
--- NOTE | ~2016-07-07 | DS ---
Unit #: [id number] #: [id number] Patient: JANET MORRISON [id number] [address] [address] [id number] I MR#: [id number] NAME: JANET MORRISON ROOM: 227 Age: 60 Sex: M Admission Date: 07/07/2016 : 1955 Discharge Date: 07/10/2016 Attending Physician: Tere Guadalupe M.D. Primary Care Physician: Freddy Cuevas M.D. DISCHARGE SUMMARY FINAL DIAGNOSES 1. Gross hematuria, which is improved. The patient will be discharged home with a Muro catheter, as per urology's recommendation, and on antibiotic of Keflex and to follow up with them in one week for voiding trial. 2. Possible urinary tract infection. The patient will be discharged on Keflex. Prescription has been written by Dr. Gilman. The patient received intravenous Rocephin during hospitalization. 3. Seizure disorder. The patient is stable at this time. Continue medications as previous. 4. Hypertension is stable. Continue home medication. 5. Coronary artery disease. The patient is asymptomatic at this time. 6. Anemia, which is chronic. DISCHARGE MEDICATIONS 1. Keflex 500 mg p.o. t.i.d. for 7 days. 2. Continue rest of the home medications. . NOTE: We are going to wait for urology's input on holding Effient, Pletal and aspirin. DIAGNOSTIC STUDIES LAB WORKUP DURING HOSPITALIZATION: WBC 11.4, hemoglobin 9.8, hematocrit 29, platelet count 345. Sodium 141, potassium 4.2, chloride 102, BUN 9, creatinine 0.6. Liver enzymes are normal. Urinalysis shows 2+ leukocyte esterase, innumerous RBCs, 2+ blood. DISCHARGE PHYSICAL EXAMINATION VITAL SIGNS ON DISCHARGE: Blood pressure is 141/72, respiratory rate 16, pulse 61, temperature 98. DISCHARGE INSTRUCTIONS 1. Follow up with primary care provider in 1 week. 2. Follow up with Dr. Gilman in 1 week for voiding trial. 3. The patient will be discharged home with leg and night bag. 4. CBC to be done in [address] per [address] Gilman, most likely gross hematuria is secondary to trauma. Dictated by... Tere Guadalupe M.D. Unit #: [id number] #: [id number] Patient: JANET MORRISON Vi Catalan TD: 07/12/2016 08:26 JOB #: [id number] DISCHARGE SUMMARY X Tere Guadalupe MD X DISCHARGE SUMMARY
[2016-07-07 17:58] LABS: BASOPHIL# 0.1 X10e3 (0-0.3); EOSINOPHIL# 0.3 X10e3 (0-0.7); EOSINOPHIL% 3.5 % (0.0-7.0); HEMATOCRIT 33.3 % (38.0-50.0); HEMOGLOBIN 11.6 gm/dL (13.0-16.0); LYMPHOCYTE% 35.1 % (17.0-45.0); MEAN CELL VOLUME 92.5 FL (83-96); MEAN CORPUSCULAR HEMOGLOBIN 32.2 PG (28-34); MEAN CORPUSCULAR HGB CONC 34.7 g/dL (30-36); MEAN PLATELET VOLUME 7.4 FL (6.5-11.5); MONOCYTE# 0.9 X10e3 (0-1.0); NEUTROPHIL# 4.3 X10e3 (1.5-7.1); NEUTROPHIL% 50.4 % (40-75); PLATELET COUNT 381 X10e3 (140-420); RED BLOOD COUNT 3.59 X10e (3.90-5.60); RED CELL DISTRIBUTION WIDTH 12.9 % (11.0-15.5); WHITE BLOOD COUNT 8.6 X10e3 (4.0-10.5)
[2016-07-07 17:59] LABS: DIFF IND NO
[2016-07-07 18:20] LABS: ALBUMIN SERUM 4.1 g/dL (3.5-5.0); ALKALINE PHOSPHATASE 54 U/L (32-92); ALT (SGPT) 38 U/L (10-40); AST (SGOT) 33 U/L (10-42); BILIRUBIN,TOTAL 0.7 mg/dL (0.2-2.0); BLOOD UREA NITROGEN 9 mg/dL (9-23); CALCIUM SERUM 9.2 mg/dL (8.4-10.2); CARBON DIOXIDE 31 mmol/L (22-31); CHLORIDE 102 mmol/L (100-111); CREATININE SERUM 0.6 mg/dL (0.6-1.4); GLOM FILT RATE Estimated ABOVE60 mL/min (>60); GLUCOSE FASTING 117 mg/dL (70-110); POTASSIUM 4.2 mmol/L (3.5-5.1); PROTEIN TOTAL SERUM 6.8 g/dL (6.0-8.3); SODIUM 141 mmol/L (135-145)
[2016-07-07 18:27] LABS: URINE SOURCE CLEAN CATCH
[~2016-07-07 18:29] MED LIST changes: +APTIOM800 MG PO; +ATORVASTATIN CA40 MG PO; +CARVEDILOL3.125 MG PO; +DONEPEZIL HCL10 MG PO; +EFFIENT10 MG PO; +LEVETIRACETAM500 MG PO; +LISINOPRIL5 MG PO; +LOW DOSE ASPIRI81 M1 PO; +NITROSTAT0.4 MG SL; +PLETAL100 M1 PO
[2016-07-07 18:38] LABS: PARTIAL THROMBOPLASTIN TIME 25.2 SECONDS (23.5-31.3); PROTHROMBIN TIME (PATIENT) 10.3 SECONDS (9.6-11.5)
[2016-07-07 18:39] LABS: URINE APPEARANCE TURBID; URINE BLOOD 2+ (NEG); URINE COLOR RED; URINE GLUCOSE NEG (NEG); URINE KETONE NEG (NEG); URINE LEUKOCYTE ESTERASE 2+ (NEG); URINE NITRATE POS (NEG); URINE PROTEIN 2+ (NEG); URINE SPECIFIC GRAVITY 1.027 (1.003-1.035); URINE UROBILINOGEN 0.2 MG/DL (NEG)
[2016-07-07 18:42] LABS: CULTURE INDICATED? YES; URBCS1 AUWI INNUM /[HPF] (0-2); URINE BACTERIA AUWI NEG (NEGATIVE); URINE SQUAMOUS EPITHELIAL CELL OCC /[HPF]
[2016-07-07 18:56] LABS: URINE BILIRUBIN NEG (NEG)
[2016-07-08 09:08] LABS: BASOPHIL# 0.1 X10e3 (0-0.3); BASOPHIL% 0.8 % (0-2.5); EOSINOPHIL# 0.3 X10e3 (0-0.7); EOSINOPHIL% 2.6 % (0.0-7.0); HEMOGLOBIN 10.8 gm/dL (13.0-16.0); LYMPHOCYTE# 2.4 X10e3 (1.0-3.5); LYMPHOCYTE% 20.3 % (17.0-45.0); MEAN CORPUSCULAR HEMOGLOBIN 32.1 PG (28-34); MEAN CORPUSCULAR HGB CONC 34.9 g/dL (30-36); MEAN PLATELET VOLUME 7.7 FL (6.5-11.5); MONOCYTE# 1.1 X10e3 (0-1.0); MONOCYTE% 9.1 % (3.0-12.0); NEUTROPHIL# 7.8 X10e3 (1.5-7.1); NEUTROPHIL% 67.2 % (40-75); PLATELET COUNT 345 X10e3 (140-420); RED BLOOD COUNT 3.36 X10e (3.90-5.60); RED CELL DISTRIBUTION WIDTH 12.9 % (11.0-15.5); WHITE BLOOD COUNT 11.6 X10e3 (4.0-10.5)
[2016-07-08 09:12] LABS: DIFF IND NO
[2016-07-10 06:26] LABS: HEMOGLOBIN 9.8 gm/dL (13.0-16.0); MEAN CELL VOLUME 93.8 FL (83-96); MEAN CORPUSCULAR HEMOGLOBIN 31.7 PG (28-34); MEAN CORPUSCULAR HGB CONC 33.8 g/dL (30-36); MEAN PLATELET VOLUME 7.6 FL (6.5-11.5); RED BLOOD COUNT 3.09 X10e (3.90-5.60); RED CELL DISTRIBUTION WIDTH 13.6 % (11.0-15.5); WHITE BLOOD COUNT 11.4 X10e3 (4.0-10.5)
[2016-07-10] MEDS ORDERED: KEFLEX500 MG PO (11:42)
== END 2016-07-10 12:35 | disposition home or self-care (01) | DRG 699 ==
LOC: CED 18:29 → CEDOF 18:30 → C2A 21:17
PROVIDERS: Emergency Medicine; Physician Assistant Medical
DX: T83.83XA Hemorrhage due to genitourinary prosthetic devices, implants and grafts, initial encounter (principal); N39.0 Urinary tract infection, site not specified; I10 Essential (primary) hypertension; R31.0 Gross hematuria; G40.909 Epilepsy, unspecified, not intractable, without status epilepticus; I25.10 Atherosclerotic heart disease of native coronary artery without angina pectoris; Z95.1 Presence of aortocoronary bypass graft; D64.9 Anemia, unspecified; F17.210 Nicotine dependence, cigarettes, uncomplicated; Z79.82 Long term (current) use of aspirin
CPT/HCPCS: 80053; 81003; 85025; 85027; 85610; 85730; 87086; 99285; J0696